=== PATIENT | male | born 1950 | race Caucasian/White ===

== ENCOUNTER 2021-11-02 06:51 | Emergency (ER) | payer MEDICARE ==
[~2021-11-02 06:51] MED LIST: MACROBID 100 M100 M1 PO
== END 2021-11-02 10:20 | disposition home or self-care (01) ==
LOC: ER1 06:51
DX: M79.605 Pain in left leg (principal); I25.2 Old myocardial infarction; I50.9 Heart failure, unspecified; I13.2 Hypertensive heart and chronic kidney disease with heart failure and with stage 5 chronic kidney disease, or end stage renal disease; E11.9 Type 2 diabetes mellitus without complications; Z88.5 Allergy status to narcotic agent; W19.XXXA Unspecified fall, initial encounter
CPT/HCPCS: 73700; 99283